=== PATIENT | female | born 1940 | race Caucasian/White ===

== ENCOUNTER 2023-06-21 13:38 | Emergency (ER) | payer OTHER ==
[~2023-06-21] VITALS: Ht 149.9 cm; Wt 58.5 kg
== END 2023-06-21 18:08 ==
LOC: ER 13:38
DX: R10.13 Epigastric pain (principal); E11.9 Type 2 diabetes mellitus without complications; Z88.8 Allergy status to other drugs, medicaments and biological substances; Z85.528 Personal history of other malignant neoplasm of kidney; I10 Essential (primary) hypertension; M79.7 Fibromyalgia; Z20.822 Contact with and (suspected) exposure to COVID-19
CPT/HCPCS: 36415; 96365; 96366; 99283; J2405; J3490

== ENCOUNTER 2024-06-27 14:17 | Inpatient (IN) | payer OTHER ==
[~2024-06-27] VITALS: Ht 149.9 cm; Wt 59.0 kg
[2024-06-27] MEDS ORDERED: AMLODIPINE BESYL5 MG PO (14:31)
[2024-06-27] MEDS ORDERED: OZEMPIC2 MG/0.75 SQ (14:31)
[2024-06-27] MEDS ORDERED: EZETIMIBE10 MG PO (14:31)
[2024-06-27] MEDS ORDERED: LEVETIRACETAM500 MG PO (14:31)
[2024-06-27] MEDS ORDERED: LOSARTAN POTASS50 MG PO (14:31)
[2024-06-27] MEDS ORDERED: VASCEPA1 GM PO (14:32)
[2024-06-27] MEDS ORDERED: VANCOMYCIN HCL125 MG PO (14:32)
[2024-06-27] MEDS ORDERED: CITALOPRAM HBR20 MG PO (14:32)
[2024-06-27] MEDS ORDERED: VELTASSA8.4 GM (14:33)
[2024-06-27] MEDS ORDERED: CARVEDILOL6.25 M1 PO (14:33)
[2024-06-27] MEDS ORDERED: CLONAZEPAM0.5 MG PO (14:33)
--- NOTE | 2024-06-27 14:33 | NUR ---
PTE REFIERE DIARREAS Y TEMPLORES . DESDE VARIOS FIGUEREDO.SE LE WILMAR/V Y SE UBICA.
[2024-06-27] MEDS ORDERED: 0.9 % SODIUM CHLORIDE 1,000 ML IV SCH (15:15)
[2024-06-27 16:04] LABS: HEMATOCRIT 30.9 % (36.0-45.00); HEMOGLOBIN 10.4 g/dL (12.0-15.00); MEAN CORPUSCULAR HEMOGLOBIN 32.2 pg (27.00-32.0); MEAN CORPUSCULAR HGB CONC 33.5 g/dl (32.0-36.0); PLATELET COUNT 284 K/uL (150-450); RED BLOOD COUNT 3.22 M/uL (4.00-6.00); RED CELL DISTRIBUTION WIDTH 13.4 % (11.5-14.5)
[2024-06-27 16:12] LABS: PH,URINE 7.5 (5.0-8.0); URINE APPEARANCE Clear; URINE BILIRRUBIN Negative (NEGATIVE); URINE BLOOD Negative; URINE COLOR Yellow; URINE GLUCOSE Negative (NEGATIVE); URINE KETONE Negative (NEGATIVE); URINE LEUKOCYTE Negative; URINE NITRATE Negative; URINE UROBILINOGEN 0.2 E.U./dl
--- NOTE | 2024-06-27 16:12 | NUR ---
SE REALIZA LABORATORIOS PADMINI ORDEN MEDICA, BAJO MEDIDAS ASEPTICAS. SE ORIENTAA PTE QUIEN REFIERE ENTENDER Y ACEPTAR.
[2024-06-27 16:16] LABS: URINE BACTERIA 17.6 uL (0.0-1933); URINE RBC 11.1 uL (0.0-20.8); URINE WBC 3.6 uL (0.0-23.2)
[2024-06-27 16:20] LABS: URINE PROTEIN 300 (NEGATIVE)
[2024-06-27 17:18] LABS: CALCIUM 9.2 mg/dL (8.5-10.1); CREATININE SERUM 2.87 mg/dL (0.55-1.02); GFR 15.76; POTASSIUM 4.83 mEq/L (3.5-5.1)
[2024-06-27] MEDS ORDERED: AZITHROMYCIN 500 MG in DEXTROSE 5 % IN WATER 250 ML IV SCH (20:29)
[2024-06-27] MEDS ORDERED: CEFTRIAXONE SODIUM 2,000 MG in 0.9 % SODIUM CHLORIDE 100 ML IV SCH (20:29)
[2024-06-27] MEDS ORDERED: ACETAMINOPHEN 500 MG GEL..CAP PO PRN (20:30)
[2024-06-27] MEDS ORDERED: IPRATROPIUM BROMIDE 0.5 MG/2.5 ML AMPUL.NEB IH SCH (20:35)
[2024-06-27] MEDS ORDERED: INSULIN LISPRO 1,000 UNIT/10 ML UNITS SUBCUTANEO PRN (20:45)
[2024-06-27] MEDS ORDERED: SODIUM CHLORIDE 0.45 % 1,000 ML IV SCH (20:45)
[2024-06-27] MEDS ORDERED: DEXTROSE 50 % IN WATER 0.5 G/ML DISP.SYRIN IV PRN (20:45)
[2024-06-27] MEDS ORDERED: FUROsemide 20 MG/2 ML VIAL IV SCH (21:00)
[2024-06-27] MEDS ORDERED: CARVEDILOL 6.25 MG TABLET PO SCH (21:00)
[2024-06-27] MEDS ORDERED: FUROsemide 20 MG/2 ML VIAL ONE (21:29)
[2024-06-27] MEDS ORDERED: CEFTRIAXONE SODIUM 2,000 MG VIAL ONE (21:30)
[2024-06-27] MEDS ORDERED: IPRATROPIUM BROMIDE 0.5 MG/2.5 ML AMPUL.NEB IH ONE (21:39)
[2024-06-27 22:23] VITALS: BP 165/72
[2024-06-27 22:28] LABS: INR 1.01; PARTIAL THROMBOPLASTIN TIME 21.2 SECONDS (22.0-34.0)
[2024-06-27 22:33] VITALS: BP 165/72; O2SAT 96
[2024-06-27 23:05] VITALS: BP 147/62; O2SAT 90
[2024-06-28 00:31] VITALS: O2SAT 95
[2024-06-28 00:39] LABS: ABG PH 7.402 (7.35-7.45); ABG pCO2 34.7 mmHg (35-45); BASE EXCESS -2.9 mmol/l; BICARBONATE 21.1 mmol/l (23-25); SaO2 89.1 %; Tco2 22.2 mmol/l
[2024-06-28 02:26] VITALS: BP 162/78
[2024-06-28 02:35] LABS: allen test SATISFACTORY; o2 32 %; puncture site RADIAL LEFT
[2024-06-28] MEDS ORDERED: LACTOBACILLUS ACIDOPHILUS 1 CAP CAP PO SCH (09:00)
[2024-06-28] MEDS ORDERED: TICAGRELOR 90 MG TABLET PO SCH (09:00)
[2024-06-28] MEDS ORDERED: LevETIRAcetam 500 MG TAB. PO SCH ×2 (09:00)
[2024-06-28] MEDS ORDERED: ATORVASTATIN CALCIUM 40 MG TABLET PO SCH (09:00)
[2024-06-28] MEDS ORDERED: ENOXAPARIN SODIUM 30 MG/0.3 ML SYRINGE SUBCUTANEO SCH (09:00)
[2024-06-28] MEDS ORDERED: LOSARTAN POTASSIUM 50 MG TABLET PO SCH (09:00)
[2024-06-28] MEDS ORDERED: FAMOTIDINE/PF 20 MG in 0.9 % SODIUM CHLORIDE 8 ML IV PUSH SCH (09:00)
[2024-06-28 09:19] VITALS: BP 150/80; O2SAT 92
[2024-06-28] MEDS ORDERED: FAMOTIDINE/PF 20 MG/2 ML VIAL ONE (09:23)
[2024-06-28] MEDS ORDERED: IPRATROPIUM BROMIDE 0.5 MG/2.5 ML AMPUL.NEB IH SCH (13:00)
[2024-06-28] MEDS ORDERED: hydrALAZINE HCL 25 MG TABLET PO SCH (17:00)
[2024-06-28] MEDS ORDERED: DONEPEZIL HCL 10 MG TABLET PO SCH (17:00)
[2024-06-29 02:03] VITALS: BP 159/59
[2024-06-29 10:11] VITALS: BP 139/65
[2024-06-29 16:50] VITALS: BP 138/66
[2024-06-29 20:35] VITALS: BP 128/65
[2024-06-30 02:22] VITALS: BP 138/51; O2SAT 100
[2024-06-30 09:35] VITALS: BP 133/71
[2024-06-30 09:56] LABS: HEMATOCRIT 26.4 % (36.0-45.00); MEAN CELL VOLUME 95.5 fL (80.00-100.00); MEAN CORPUSCULAR HEMOGLOBIN 31.7 pg (27.00-32.0); MEAN CORPUSCULAR HGB CONC 33.2 g/dl (32.0-36.0); PLATELET COUNT 226 K/uL (150-450); RED BLOOD COUNT 2.77 M/uL (4.00-6.00); RED CELL DISTRIBUTION WIDTH 13.1 % (11.5-14.5)
[2024-06-30 10:09] LABS: ALBUMIN 2.7 gm/dL (3.4-5.0); CALCIUM 8.2 mg/dL (8.5-10.1); CREATININE SERUM 2.38 mg/dL (0.55-1.02); GFR 19.56; PHOSPHOROUS 4.9 mg/dL (2.5-4.9); POTASSIUM 4.3 mEq/L (3.5-5.1)
[2024-06-30 10:14] LABS: HEMOGLOBIN 8.8 g/dL (12.0-15.00); URIC ACID 8.1 mg/dL (2.5-7.5)
[2024-06-30 18:25] LABS: ABG PH 7.381 (7.35-7.45); BASE EXCESS -2.6 mmol/l; SaO2 75.9 %; Tco2 23.2 mmol/l
[2024-06-30 18:43] VITALS: BP 134/71
[2024-06-30 19:09] LABS: ABG PO2 41.9 mmHg (80-100)
[2024-06-30 19:10] LABS: allen test SATISFACTORY; o2 21 %; puncture site RADIAL LEFT
[2024-07-01 03:39] VITALS: BP 114/70; O2SAT 96
[2024-07-01 08:40] VITALS: BP 158/65; O2SAT 97
[2024-07-01] MEDS ORDERED: PATIENTS OWN MEDICATION (MEDICAMENTO EN PISO) PO SCH (09:00)
[2024-07-01] MEDS ORDERED: DONEPEZIL HCL 10 MG TABLET PO SCH (09:00)
[2024-07-01] MEDS ORDERED: TICAGRELOR 90 MG TABLET PO SCH (17:00)
[2024-07-01 18:22] VITALS: BP 160/68; O2SAT 97
[2024-07-01 22:52] VITALS: BP 160/67; O2SAT 98
[2024-07-02 02:23] VITALS: BP 154/74
[2024-07-02 09:28] LABS: HEMATOCRIT 30.9 % (36.0-45.00); HEMOGLOBIN 10.6 g/dL (12.0-15.00); MEAN CELL VOLUME 94.2 fL (80.00-100.00); MEAN CORPUSCULAR HEMOGLOBIN 32.3 pg (27.00-32.0); MEAN CORPUSCULAR HGB CONC 34.3 g/dl (32.0-36.0); PLATELET COUNT 304 K/uL (150-450); RED BLOOD COUNT 3.28 M/uL (4.00-6.00); RED CELL DISTRIBUTION WIDTH 13.3 % (11.5-14.5)
[2024-07-02 09:44] VITALS: BP 165/70; O2SAT 96
[2024-07-02 10:39] LABS: ALBUMIN 3.3 gm/dL (3.4-5.0); BILIRUBIN TOTAL 0.38 mg/dL (0.3-1.2); CALCIUM 9.6 mg/dL (8.5-10.1); CREATININE SERUM 2.82 mg/dL (0.55-1.02); GFR 16.09; GLOBULINA 4.5 G/DL (2.4-3.5); POTASSIUM 4.47 mEq/L (3.5-5.1); TOTAL PROTEIN 7.8 gm/dL (6.4-8.2)
[2024-07-02] MEDS ORDERED: AMLODIPINE BESYLATE 5 MG TABLET PO SCH (17:00)
[2024-07-02 18:04] VITALS: BP 138/70; O2SAT 96
[2024-07-03 02:47] VITALS: BP 153/59
[2024-07-03] MEDS ORDERED: FAMOtidine 20 MG TABLET PO SCH (09:00)
[2024-07-03 09:25] VITALS: BP 156/60; O2SAT 97
[2024-07-03 17:10] LABS: ABG PO2 63.4 mmHg (80-100); BASE EXCESS 0.7 mmol/l; BICARBONATE 23.3 mmol/l (23-25); SaO2 93.6 %; Tco2 24.3 mmol/l
[2024-07-03 17:12] VITALS: BP 149/77
[2024-07-03 17:12] LABS: allen test SATISFACTORY; o2 21 %; puncture site RADIAL LEFT
[2024-07-04 02:38] VITALS: BP 116/69; O2SAT 98
[2024-07-04 07:28] LABS: ALBUMIN 3.1 gm/dL (3.4-5.0); BILIRUBIN TOTAL 0.33 mg/dL (0.3-1.2); CREATININE SERUM 2.9 mg/dL (0.55-1.02); GFR 15.57; POTASSIUM 4.27 mEq/L (3.5-5.1); TOTAL PROTEIN 7.1 gm/dL (6.4-8.2)
[2024-07-04 09:32] VITALS: BP 115/71; O2SAT 96
[2024-07-04 16:38] VITALS: BP 150/70; O2SAT 96
[2024-07-05 00:59] VITALS: BP 143/76; O2SAT 97
[2024-07-05 05:17] LABS: HEMATOCRIT 25.7 % (36.0-45.00); HEMOGLOBIN 8.8 g/dL (12.0-15.00); MEAN CELL VOLUME 95.4 fL (80.00-100.00); MEAN CORPUSCULAR HEMOGLOBIN 32.7 pg (27.00-32.0); MEAN CORPUSCULAR HGB CONC 34.2 g/dl (32.0-36.0); PLATELET COUNT 270 K/uL (150-450); RED BLOOD COUNT 2.69 M/uL (4.00-6.00); RED CELL DISTRIBUTION WIDTH 12.8 % (11.5-14.5)
[2024-07-05 05:35] LABS: CALCIUM 8.6 mg/dL (8.5-10.1); CREATININE SERUM 2.9 mg/dL (0.55-1.02); GFR 15.57; POTASSIUM 4.05 mEq/L (3.5-5.1)
[2024-07-05 08:00] VITALS: BP 93/64; O2SAT 99
== END 2024-07-05 15:52 | disposition home or self-care (01) | DRG 194 ==
LOC: ER 14:18 → MEDI 20:49
PROVIDERS: Emergency Medicine; General Practice; Internal Medicine; Internal Medicine Nephrology; ADMIT Internal Medicine; ATTEND Internal Medicine
PROC: BW24ZZZ Computerized Tomography (CT Scan) of Chest and Abdomen (ICD-10-PCS; principal; 2024-06-27)
PROC: B24BZZZ Ultrasonography of Heart with Aorta (ICD-10-PCS; 2024-06-28)
PROC: 02HV33Z Insertion of Infusion Device into Superior Vena Cava, Percutaneous Approach (ICD-10-PCS; 2024-06-28)
PROC: BW24ZZZ Computerized Tomography (CT Scan) of Chest and Abdomen (ICD-10-PCS; 2024-06-29)
PROC: BW24ZZZ Computerized Tomography (CT Scan) of Chest and Abdomen (ICD-10-PCS; 2024-07-03)
DX: J18.9 Pneumonia, unspecified organism (principal); I13.0 Hypertensive heart and chronic kidney disease with heart failure and stage 1 through stage 4 chronic kidney disease, or unspecified chronic kidney disease; N17.9 Acute kidney failure, unspecified; E11.22 Type 2 diabetes mellitus with diabetic chronic kidney disease; R09.02 Hypoxemia; I50.9 Heart failure, unspecified; N18.9 Chronic kidney disease, unspecified; Z79.4 Long term (current) use of insulin; I25.10 Atherosclerotic heart disease of native coronary artery without angina pectoris; E78.5 Hyperlipidemia, unspecified; G30.9 Alzheimer's disease, unspecified; F02.80 Dementia in other diseases classified elsewhere, unspecified severity, without behavioral disturbance, psychotic disturbance, mood disturbance, and anxiety; D64.9 Anemia, unspecified